=== PATIENT | male | born 1965 | race Caucasian/White ===

== ENCOUNTER → 2021-06-05 | Outpatient (POV) | payer MEDICARE ==
[~2021-06-05] VITALS: Ht 185.4 cm; Wt 104.1 kg
[~2021-06-05] MED LIST: ALBU8.5H PO; ALPR0.5T6 PO; ASPI81TA26 PO; AZEL0.055 NARES; BENZ200C70 PO; BUME2TAB3 PO; CARV12.5 PO; CYCL-707 PO; DICL1GEL3 TD; DIGO0.123 PO; ENOX100I3 PO; ENTR1TAB PO; FENT1DIS14 PO; HYDR100T PO; JARD1TAB PO; LORA-674 PO; MAGN400T33 PO; METO1TAB87 PO; METO25TA PO; NITR0.4S14 SL; ONDA-83 PO; OXYC10TA12 PO; PANT40TA29 PO; POTA-141 PO; REPA420I2 SC; SPIR-10 PO
[2021-06-05 13:00] VITALS: BP 142/82
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
== END ==
LOC: M IRPOV 12:38
PROVIDERS: ATTEND Radiology Diagnostic Radiology
DX: I25.10 Atherosclerotic heart disease of native coronary artery without angina pectoris (principal); I25.2 Old myocardial infarction; Z95.5 Presence of coronary angioplasty implant and graft; Z79.01 Long term (current) use of anticoagulants; Z79.82 Long term (current) use of aspirin; Z79.899 Other long term (current) drug therapy; Z86.711 Personal history of pulmonary embolism; Z86.718 Personal history of other venous thrombosis and embolism; Z95.810 Presence of automatic (implantable) cardiac defibrillator

== ENCOUNTER → 2021-06-07 | Outpatient (CLI) | payer MEDICARE ==
[~2021-06-07] MED LIST changes: +ISOVUE-300 61% 50ML VIAL As Ordered ONE; +LIDOCAINE 1% MDV 20ML VIAL As Ordered ONE; +MIDAZOLAM INJ 2MG/2ML VIAL (J2250 PER 1MG) As Ordered ONE; +NS 1,000 ML IV SCH; +diphenhydrAMINE 50MG/ML VIAL (J1200) As Ordered ONE; +fentaNYL 100 MCG/2 ML INJECTION (J3010) As Ordered ONE
--- NOTE | 2021-06-07 07:59 | IRHP ---
[facility] IR Pre-Procedure H & P General Date of Service: Jun 07, 2021 Procedure: Same Day Surgery Interval History and Physical I have seen the patient and reviewed last H & P performed within 30 days. There is no significant interval change. History of Present Illness Chief Complaint The patient is a 56-year-old male admitted with a reason for visit of Pe's And Dvt's. PRE-PROCEDURE DIAGNOSIS: PE DVT HEART: normal rate. LUNGS: normal breathing at rest. ASA Classification ASA Classification: III-Severe systemic dis. Mallampati Score: II NPO: Yes Problems with prior sedation: No Obstructive Sleep Apnea: No Plan moderate sedation Allergies Uncoded Allergies: NKDA (Allergy, Mild, 06/05/21) Home Medications Scheduled Alprazolam (Alprazolam ER), 0.5 MG PO TID, (Reported) Aspirin (Aspirin EC), 81 MG PO DAILY, (Reported) Azelastine HCl (Azelastine HCl), 2 PUFF NARES DAILY, (Reported) Bumetanide (Bumetanide), 2 MG PO BID, (Reported) Carvedilol (Carvedilol), 12.5 MG PO DAILY, (Reported) Digoxin (Digoxin), 125 MCG PO DAILY, (Reported) Empagliflozin (Jardiance), 10 MG PO DAILY, (Reported) Enoxaparin Sodium (Enoxaparin Sodium), 100 MG PO DAILY, (Reported) Evolocumab (Repatha Pushtronex), 420 MG SC Q2WK, (Reported) Fentanyl (Fentanyl), 25 MCG PO Q3DP, (Reported) Loratadine (Loratadine), 10 MG PO DAILY, (Reported) Magnesium Oxide (Magnesium Oxide), 400 MG PO DAILY, (Reported) Metolazone (Metolazone), 2.5 MG PO DAILY, (Reported) Metoprolol Tartrate (Metoprolol Tartrate), 25 MG PO DAILY, (Reported) Nitroglycerin (Nitroglycerin), 0.4 MG SL ASDIRECTED, (Reported) Ondansetron HCl (Ondansetron HCl), 4 MG PO DAILY, (Reported) Pantoprazole Sodium (Pantoprazole Sodium), 40 MG PO DAILY, (Reported) Potassium Chloride (Klor-Con M20), 20 MEQ PO DAILY, (Reported) Sacubitril/Valsartan (Entresto 24 mg-26 mg Tablet), 24 MG PO DAILY, (Reported) Spironolactone (Spironolactone), 25 MG PO DAILY, (Reported) hydrALAZINE HCL (Hydralazine HCl), 100 MG PO DAILY, (Reported) Scheduled PRN Albuterol Sulfate (Albuterol Sulfate Hfa), 8.5 MG PO Q6-8HP PRN for SHORTNESS OF BREATH, (Reported) Benzonatate (Benzonatate), 200 MG PO Q6-8HP PRN for COUGH, (Reported) Cyclobenzaprine HCl (Cyclobenzaprine HCl), 10 MG PO TID PRN for MUSCLE SPASMS, (Reported) Diclofenac Sodium (Diclofenac Sodium), 1 DOSE TD DAILYPRN PRN for PAIN LEVEL 1- 4, (Reported) Oxycodone HCl (Oxycodone HCl), 10 MG PO Q4-6HP PRN for PAIN LEVEL 3-5, (Repor angely) VS, I&O, 24H, Fishbone Vital Signs/I&O Vital Signs Date Time Temp Pulse Resp B/P (MAP) Pulse Ox O2 Delivery O2 Flow Rate FiO2 06/07/21 07:15 97.4 94 19 99 Room Air STEVE SEVERINO MD Jun 07, 2021 07:58
--- NOTE | 2021-06-07 09:06 | IRPON ---
IR Postoperative Note Date Of Procedure: Jun 07, 2021 Time Of Procedure: 09:03 IR Postoperative Note IR IVC Filter Placement IR Inferior vena cavogram IR Ultrasound of the right groin. IR Moderate sedation. Clinical Information:PE and DVTs refractory to anticoagulation. Physician: Dr. Calixto. Procedure: The patient was advised of the benefits, risks, and alternatives of the procedure and informed consent was obtained. A time out was performed with verification of the patient's name, MRN, site of procedure, and type of procedure to be performed. The patient was positioned in the supine position on the angiographic table. The site was prepped and draped in the usual sterile fashion. Moderate sedation was performed by the physician including the presence of an independent trained RN, who assisted in monitoring the patient's level of consciousness and physiological status. Following the administration of fentanyl and Versed, the physician spent 45 minutes of continuous [id number] time with the patient. Preliminary ultrasound of the right groin was performed, demonstrating patent and compressible right common femoral vein. . The right common femoral vein was accessed under ultrasound guidance, using a micropuncture kit. A 0.035 Amplatz wire was advanced under fluoroscopy gu idance and placed into the central inferior vena cava. The filter sheath was advanced over the wire, under fluoroscopy guidance, and positioned in the right common iliac vein. An inferior venacavogram was then performed, demonstrating a normal caliber in ferior vena cava without filling defects and the renal vein inflows at the L2-3 level. No caval anomalies were identified. The filter sheath was advanced over the wire and under fluoroscopy guidance, beyond the target site of deployment. A retrievable Cook select inferior vena cava filter was then advanced through the sheath and positioned within the infra-renal inferior vena cava. The filter was then deployed in the usual fashion. Positioning was confirmed fluoroscopically. The sheath was then removed and hemostasis obtained with manual compression. The patient tolerated the procedure well and was returned to the PRU in stable condition. EBL: < 5 mL. Complications:None. Conclusions: 1. Normal cavogram. 2. Successful deployment of a retrievable Cook select inferior vena cava filter in the infra-renal inferior vena cava. 3. This filter is retrievable if appropriate. However, given patient's history, may remain in lifelong. Thank you for this referral. CC Dr. Boss. [place] cardiology CC STEVE Kwok PA-C, MD Jun 07, 2021 09:06
[2021-06-07 10:30] VITALS: BP 122/82
== END ==
LOC: M IRPRO 07:01
PROVIDERS: ATTEND Radiology Diagnostic Radiology
DX: Z86.711 Personal history of pulmonary embolism (principal); E11.22 Type 2 diabetes mellitus with diabetic chronic kidney disease; E78.2 Mixed hyperlipidemia; F41.9 Anxiety disorder, unspecified; F51.04 Psychophysiologic insomnia; I13.0 Hypertensive heart and chronic kidney disease with heart failure and stage 1 through stage 4 chronic kidney disease, or unspecified chronic kidney disease; I25.10 Atherosclerotic heart disease of native coronary artery without angina pectoris; I48.0 Paroxysmal atrial fibrillation; I50.20 Unspecified systolic (congestive) heart failure; M54.50 Low back pain, unspecified; N18.32 Chronic kidney disease, stage 3b; G89.29 Other chronic pain; Z86.718 Personal history of other venous thrombosis and embolism; Z79.82 Long term (current) use of aspirin; Z79.891 Long term (current) use of opiate analgesic; Z79.899 Other long term (current) drug therapy; Z95.810 Presence of automatic (implantable) cardiac defibrillator
CPT/HCPCS: 37191; 99152; 99153; C1769; C1880; C1894; J1200; J1644; J2250; J3010; Q9967